=== PATIENT | male | born 1965 | race Two or more races ===

== ENCOUNTER → 2017-10-07 | Day surgery (SDC) | payer MEDICARE, MEDICAID ==
[~2017-10-07] MED LIST: DIPHENHYDRAMINE HCL 50 MG/ML VIAL ONE; EPINEPHRINE INJ 1 MG/10 ML DISP.SYRIN ONE; FENTANYL CITRATE INJ/PF 100 MCG/2 ML AMPUL ONE; FLUMAZENIL INJ 0.5 MG/5 ML VIAL ONE; GLUCAGON,HUMAN RECOMB 1 MG INJ ONE; MIDAZOLAM 2 MG/2 ML INJ ONE; NALOXONE HCL INJ/PF 0.4 MG/1 ML SDV ONE; ONDANSETRON HCL INJ/PF 4 MG/2 ML SDV ONE
== END ==
LOC: END 15:35
PROVIDERS: ATTEND Internal Medicine Gastroenterology
DX: R69 Illness, unspecified (principal)
CPT/HCPCS: 82962; J0171; J1200; J1610; J2250; J2310; J2405; J3010; J3490

== ENCOUNTER 2017-10-14 14:35 | Day surgery (SDC) | payer MEDICARE, MEDICAID ==
[2017-10-14] MEDS ORDERED: NALOXONE HCL INJ/PF 0.4 MG/1 ML SDV ONE (15:04)
[2017-10-14] MEDS ORDERED: ONDANSETRON HCL INJ/PF 4 MG/2 ML SDV ONE (15:04)
[2017-10-14] MEDS ORDERED: DIPHENHYDRAMINE HCL 50 MG/ML VIAL ONE (15:04)
[2017-10-14] MEDS ORDERED: FENTANYL CITRATE INJ/PF 100 MCG/2 ML AMPUL ONE (15:05)
[2017-10-14] MEDS ORDERED: GLUCAGON,HUMAN RECOMB 1 MG INJ ONE (15:06)
[2017-10-14] MEDS ORDERED: FLUMAZENIL INJ 0.5 MG/5 ML VIAL ONE (15:06)
[2017-10-14] MEDS ORDERED: EPINEPHRINE INJ 1 MG/10 ML DISP.SYRIN ONE (15:06)
[2017-10-14] MEDS: MIDAZOLAM 2 MG/2 ML INJ ONE ×2 (15:58→16:02)
--- NOTE | 2017-10-14 16:19 | Operative Report ---
Operative Report DATE OF SURGERY: 10/14/17 Operative Report: Pre-op diagnosis: Iron deficiency anemia Post-op diagnosis: Limited view due to poor prep Surgery: Colonoscopy Medications: Versed 3mg, Fentanyl 100mcg IV push Tissue removed: None Procedure: After informed consent obtained from patient, conscious sedation was achieved. A digital rectal examination was performed and this was unremarkable. The colonoscope was inserted into the rectum and advanced to the cecum. The appendiceal orifice and the terminal ileum were both identified. The mucosa was examined into details as the colonoscope was slowly pulled out of the patient. The endoscope was retroflexed in the rectum. Patient tolerated the procedure well. Findings Review of all the colon was limited due to retained stool. No large lesions was identified. Rectum: Normal except for internal hemorrhoids Plan: Repeat colonoscopy with better prep OPERATION: .
[2017-10-14 17:11] VITALS: BP 125/79
== END 2017-10-14 17:20 | disposition home or self-care (01) ==
LOC: END 14:35
PROVIDERS: ATTEND Internal Medicine Gastroenterology
DX: Z12.11 Encounter for screening for malignant neoplasm of colon (principal); K64.8 Other hemorrhoids; Z86.010 Personal history of colon polyps; D50.9 Iron deficiency anemia, unspecified; I10 Essential (primary) hypertension; Z86.73 Personal history of transient ischemic attack (TIA), and cerebral infarction without residual deficits; E11.9 Type 2 diabetes mellitus without complications; E78.00 Pure hypercholesterolemia, unspecified; I25.2 Old myocardial infarction; K21.9 Gastro-esophageal reflux disease without esophagitis; G40.909 Epilepsy, unspecified, not intractable, without status epilepticus; E66.9 Obesity, unspecified; G81.94 Hemiplegia, unspecified affecting left nondominant side; Z79.899 Other long term (current) drug therapy; Z79.82 Long term (current) use of aspirin; Z79.1 Long term (current) use of non-steroidal anti-inflammatories (NSAID); Z79.84 Long term (current) use of oral hypoglycemic drugs; Z79.4 Long term (current) use of insulin; Z68.39 Body mass index [BMI] 39.0-39.9, adult; Z99.3 Dependence on wheelchair
CPT/HCPCS: 82962; G0121; J2250; J3010; J0171; J1200; J1610; J2310; J2405; J3490

== ENCOUNTER 2017-12-09 15:34 | Day surgery (SDC) | payer MEDICARE, MEDICAID ==
[2017-12-09] MEDS ORDERED: ONDANSETRON HCL INJ/PF 4 MG/2 ML SDV ONE (16:51)
[2017-12-09] MEDS ORDERED: DIPHENHYDRAMINE HCL 50 MG/ML VIAL ONE (16:51)
[2017-12-09] MEDS ORDERED: NALOXONE HCL INJ/PF 0.4 MG/1 ML SDV ONE (16:51)
[2017-12-09] MEDS ORDERED: FENTANYL CITRATE INJ/PF 100 MCG/2 ML AMPUL ONE (16:51)
[2017-12-09] MEDS ORDERED: MIDAZOLAM 2 MG/2 ML INJ ONE ×2 (16:51)
[2017-12-09] MEDS ORDERED: EPINEPHRINE INJ 1 MG/10 ML DISP.SYRIN ONE (16:52)
[2017-12-09] MEDS ORDERED: FLUMAZENIL INJ 0.5 MG/5 ML VIAL ONE (16:52)
[2017-12-09] MEDS ORDERED: GLUCAGON,HUMAN RECOMB 1 MG INJ ONE (16:52)
--- NOTE | 2017-12-09 18:04 | Operative Report ---
Operative Report DATE OF SURGERY: 12/09/17 Operative Report: Pre-op diagnosis: Anemia Post-op diagnosis: 1. Rectal polyp 2. Limited view of the colon Surgery: Colonoscopy to the cecum with polypectomy Medications: Versed 2 mg, Fentanyl 100 mcg IV push Tissue removed: Rectal polyp Procedure: After informed consent obtained from patient, conscious sedation was achieved. A digital rectal examination was performed and this was unremarkable. The colonoscope was inserted into the rectum and advanced to the cecum. The appendiceal orifice and the terminal ileum were both identified. The mucosa was examined into details as the colonoscope was slowly pulled out of the patient. The endoscope was retroflexed in the rectum. Patient tolerated the procedure well. Findings Cecum: Limited view Ascending colon: Limited view Transverse colon: Limited view Descending colon: Limited view Sigmoid colon: Limited view Rectum: 4 mm polyp removed with the cold snare Plan: Repeat colonoscopy with better preparation OPERATION: .
[2017-12-09 18:47] VITALS: BP 120/62
== END 2017-12-09 16:45 ==
LOC: END 15:34
PROVIDERS: ATTEND Internal Medicine Gastroenterology
DX: Z86.010 Personal history of colon polyps (principal); K63.5 Polyp of colon; D64.9 Anemia, unspecified
CPT/HCPCS: 45385; 82962; 88305 ×2; J2250; J3010; J0171; J1200; J1610; J2310; J2405; J3490